=== PATIENT | female | born 1980 | race Caucasian/White ===

== ENCOUNTER 2018-01-23 18:28 | Observation (INO) | payer OTHER ==
[~2018-01-23] VITALS: Ht 162.6 cm; Wt 74.8 kg
[~2018-01-23 18:28] MED LIST: CLINDAMYCIN HC300 MG PO; IBU800 MG PO; NORCO 325 MG-51 TAB PO; PERCOCET 325 MG1 TA2 PO; SYMAX-SR0.375 MG PO; ZOFRAN ODT8 MG PO; ZOFRAN4 M1 SL
--- NOTE | 2018-01-23 20:10 | ULTRASOUND REPORT ---
EXAMINATION: US ABDOMEN LIMITED CLINICAL INFORMATION: Right upper quadrant pain. Cholecystitis.. COMPARISON: CT abdomen pelvis 06/02/2014 TECHNIQUE: Real-time imaging of the right upper quadrant abdominal viscera. Examination mildly limited secondary to overlying bowel gas. FINDINGS: PANCREAS: Visualized portion of the pancreas are normal in appearance. LIVER: Normal. The liver demonstrates normal size, contour and echogenicity. No focal lesion or intrahepatic biliary duct dilatation. GALLBLADDER: The gallbladder is physiologically distended without evidence of stones, sludge or polyps. The gallbladder wall is not diffusely thickened. Sonographic Cordero's sign is inaccurate as the patient is tender in the entire right upper quadrant per technologist report. COMMON BILE DUCT: Normal in caliber measuring 0.4 cm in diameter. RIGHT KIDNEY: The kidney measures 10.8 cm in maximum dimension. 4 mm nonobstructing mid pole calculus. No hydronephrosis. FREE FLUID: None. IMPRESSION: 1. Physiologically distended gallbladder without gallstones. Cordero's sign is inaccurate as the patient is tender in the entire right upper quadrant per technologist report. Clinical correlation recommended to evaluate for acute cholecystitis. 2. 4 mm nonobstructing right renal calculus. No hydronephrosis.
[2018-01-23 20:22] LABS: ABSOLUTE BASOPHIL COUNT 0 /CUMM (0.0-0.2); ABSOLUTE EOSINOPHIL COUNT 0.1 /CUMM (0.0-0.7); ABSOLUTE GRANULOCYTE CT 4.5 /CUMM (1.4-6.5); ABSOLUTE LYMPH COUNT 2.4 /CUMM (1.2-3.4); ABSOLUTE MONOCYTE COUNT 0.5 /CUMM (0.10-0.60); BASOPHIL % 0.4 % (0.0-2.0); EOSINOPHIL % 1.4 % (0-5); GRANULOCYTE % 59.6 % (42.2-75.2); MEAN CORPUSCULAR HGB 31.2 PG (27.0-31.0); MEAN CORPUSCULAR VOLUME 91.8 FL (81.0-99.0); MEAN PLATELET VOLUME 8.5 FL (7.4-10.4); PLATELET COUNT 215 /CUMM (130-400); RBC DISTRIBUTION WIDTH 12.8 % (11.5-14.5); WHITE BLOOD CELL COUNT 7.5 /CUMM (4.8-10.8)
--- NOTE | 2018-01-23 22:41 | CT SCAN REPORT ---
EXAMINATION: CT ABDOMEN AND PELVIS WITH CONTRAST CLINICAL INFORMATION: Right upper quadrant pain COMPARISON: CT scan abdomen pelvis 06/03/2014 TECHNIQUE: Multidetector volumetric imaging was performed of the abdomen and pelvis following IV administration of 95 mL of Optiray 320 intravenous contrast. Sagittal and coronal reformatted images were obtained on the technologist's workstation. DLP: 348.68 mGy-cm FINDINGS: LUNG BASES: The visualized lung bases are unremarkable. LIVER, GALLBLADDER, AND BILIARY TREE: There is a 9 mm hypodensity in segment 7 and a second 7 mm hypodensity in the left lobe liver near the gallbladder, segment 4, of the liver both remain unchanged since CAT scan 06/03/2014 likely a small hepatic cysts. The liver is normal in size, shape, and attenuation. No suspicious focal hepatic lesion or biliary ductal dilatation is present. The gallbladder is unremarkable with no evidence of radiopaque gallstones, gallbladder wall thickening, or obvious pericholecystic inflammatory changes. PANCREAS: Unremarkable. SPLEEN: Unremarkable. ADRENAL GLANDS: Unremarkable. KIDNEYS AND URETERS: The kidneys are normal in size, shape, and attenuation. No hydronephrosis, hydroureter, or calculi seen. No perinephric stranding. BLADDER: Unremarkable. GASTROINTESTINAL TRACT: The small and large bowel are unremarkable. The appendix is unremarkable. ABDOMINAL WALL: Small fat-containing umbilical hernia. LYMPH NODES: No significant lymphadenopathy. There are surgical clips in the retroperitoneum at the IVC bifurcation and extending along the right internal and external iliac chains. VASCULAR: Unremarkable. PELVIC VISCERA: Unremarkable. OSSEOUS STRUCTURES: Unremarkable. IMPRESSION: No acute abnormality CT scan abdomen and pelvis.
--- NOTE | 2018-01-23 22:46 | Cons- General Surgery ---
Julian Acosta 01/23/18 2242: General Information and HPI Consulting Request Date of Consult: 01/23/18 Requested By: MARLYN Kennedy, CHRISTOPHER Reason for Consult: abdominal pain Source of Information: patient Exam Limitations: no limitations History of Present Illness: This is a 37-year-old female presents to the ER with complaints of abdominal pain and flank pain on the right side, right upper quadrant. She has had this pain for approximately 2-3 days that has been intermittent and getting worse. There are no preceding factors to this that she is aware of. She believes she might of had a low-grade fever and chills at onset of this however did not take her temperature. She denies nausea and vomiting. She has a lack of appetite. She had mild diarrhea earlier today. She has no previous history of pain in this area. She does have history of kidney stones and uterine cancer and has had previous hysterectomy. She denies any symptoms of pain after eating, she does not recall this pain starting after eating, she has not had any large fried or fatty meals. She has not had any epigastric pain or reflux symptoms or pain in the right upper quadrant over the last several weeks. She has no family history of gallbladder disease. Upon arrival here she had routine labs and an ultrasound which showed a physiologically distended gallbladder and was otherwise unremarkable. Surgery was consulted for further evaluation of her abdominal pain Allergies/Medications Allergies: Coded Allergies: Penicillins (UNKNOWN 01/23/18) bee venom protein (honey bee) (UNKNOWN 01/24/18) cephalexin (UNKNOWN 01/23/18) oats (OATMEAL, UNKNOWN RXN 01/24/18) shellfish derived (UNKNOWN 01/23/18) Home Med List: CLINDAMYCIN HCL (Clindamycin HCl) 300 MG CAPSULE 1 CAP PO TID CELLULITIS RIGHT SIDE R FOOT (Reported) Hyoscyamine Sulfate (Symax-Sr) 0.375 MG TAB.ER.12H 1 TAB PO 4 TIMES/DAY ANTISPASMODIC (Reported) Ibuprofen (Ibu) 800 MG TAB 1 TAB PO PRN PAIN (Reported) Ondansetron (Zofran Odt) 8 MG ODT 1 TAB PO PRN N/V (Reported) Ondansetron (Zofran Odt) 4 MG TAB.RAPDIS 1 ODT SL Q6P PRN NAUSEA OXYCODONE HCL/ACETAMINOPHEN (Percocet 5-325 MG Tablet) 325 MG/5 MG TAB 1-2 TAB PO Q4-6 PRN PRN PAIN Past History Medical History Renal: nephrolithiasis Psychiatric: anxiety, depression Cancer(s): Uterine Cancer Functional Ability ADLs Independent: dressing, eating, toileting, bathing. Review of Systems Review of Systems: Review of systems: See HPI, all other systems negative. Constitutional: No chills fever or weight loss HEENT: No visual changes no sore throat no congestion Cardiovascular: No chest pain ,palpitation , orthopnea or ankle swelling Skin: No jaundice no rashes Respiratory: No dyspnea cough sputum or hemoptysis GI: See HPI : No dysuria no hematuria Musclulo skeletal: No back pain no neck pain, Neurologic: No numbness no confusion Psych: No stress anxiety or depression,. Heme/endocrine: No bruising no bleeding no polyuria or polydipsia Immunology: No splenectomy or history of AIDS Exam & Diagnostic Data Vital Signs and I&O Vital Signs Date Time Temp Pulse Resp B/P B/P Pulse O2 O2 Flow FiO2 Mean Ox Delivery Rate 01/23 2038 86 18 111/73 Room Air 01/23 2030 Room Air 01/23 1857 98.3 93 16 119/80 97 Room Air Physical Exam: Well-developed well-nourished no apparent distress. HEENT: Atraumatic, extraocular motion intact Neck: Supple, no lymphadenopathy Respiratory: No respiratory distress Abdomen: Tenderness to the right flank, right CVA region, far lateral right upper quadrant. She does not have tenderness locally over McBurney's point, her pain is more lateral. She does not have any epigastric pain or tenderness. No lower abdominal tenderness. No distention. No rashes about the right flank Extremities: No edema, no calf pain Neuro: Alert and oriented x3 Psych: Mood affect normal, normal memory normal judgment. Skin: Warm and dry, no rash on exposed skin Last 24 Hours of Labs: Laboratory Tests 01/23 Chemistry Sodium (137 - 145 mmol/L) 139 Potassium (3.5 - 5.1 mmol/L) 4.0 Chloride (98 - 107 mmol/L) 102 Carbon Dioxide (22 - 30 mmol/L) 31 H Anion Gap (5 - 16) 6 BUN (7 - 17 mg/dL) 15 Creatinine (0.5 - 1.0 mg/dL) 0.8 Estimated GFR (>60 ml/min) > 60 BUN/Creatinine Ratio (7 - 25 %) 18.8 Glucose (65 - 99 mg/dL) 86 Calcium (8.4 - 10.2 mg/dL) 9.5 Total Bilirubin (0.2 - 1.3 mg/dL) 0.3 AST (14 - 36 U/L) 16 ALT (9 - 52 U/L) 24 Alkaline Phosphatase (<127 U/L) 61 Total Protein (6.3 - 8.2 g/dL) 6.9 Albumin (3.5 - 5.0 g/dL) 4.4 Globulin (1.9 - 4.2 gm/dL) 2.5 Albumin/Globulin Ratio (1.1 - 2.2 %) 1.8 Amylase (30 - 110 U/L) 68 Lipase (23 - 300 U/L) 115 Hematology CBC w Diff NO MAN DIFF REQ WBC (4.8 - 10.8 /CUMM) 7.5 RBC (4.20 - 5.40 /CUMM) 4.80 Hgb (12.0 - 16.0 G/DL) 15.0 Hct (37 - 47 %) 44.0 MCV (81.0 - 99.0 FL) 91.8 MCH (27.0 - 31.0 PG) 31.2 H MCHC (33.0 - 37.0 G/DL) 34.0 RDW (11.5 - 14.5 %) 12.8 Plt Count (130 - 400 /CUMM) 215 MPV (7.4 - 10.4 FL) 8.5 Gran % (42.2 - 75.2 %) 59.6 Lymphocytes % (20.5 - 51.1 %) 31.4 Monocytes % (1.7 - 9.3 %) 7.2 Eosinophils % (0 - 5 %) 1.4 Basophils % (0.0 - 2.0 %) 0.4 Absolute Granulocytes (1.4 - 6.5 /CUMM) 4.5 Absolute Lymphocytes (1.2 - 3.4 /CUMM) 2.4 Absolute Monocytes (0.10 - 0.60 /CUMM) 0.5 Absolute Eosinophils (0.0 - 0.7 /CUMM) 0.1 Absolute Basophils (0.0 - 0.2 /CUMM) 0 Urines Urine Color (YEL,AMB,STR) YEL Urine Clarity (CLEAR) CLEAR Urine pH (5.0 - 8.0) 8.5 H Ur Specific [place] (1.001 - 1.035) 1.010 Urine Protein (NEG,<30 MG/DL) NEG Urine Ketones (NEG) NEG Urine Nitrite (NEG) NEG Urine Bilirubin (NEG) NEG Urine Urobilinogen (0.1 - 1.0 EU/dl) 0.2 Ur Leukocyte Esterase (NEG) LARGE H Ur Microscopic SEDIMENT EXAMINED Urine WBC (0 - 2 /HPF) 5-10 H Ur Epithelial Cells (NONE,FEW) RARE Urine Bacteria (NEG/NONE) FEW H Urine Mucus (FEW,NONE) RARE Urine Hemoglobin (NEG) NEG Urine Glucose (N MG/DL) NEG Urine Test NEGATIVE 01/23 Chemistry Amylase Cancelled Lipase Cancelled Imaging Results: PATIENT: GARTH BECK PRESENT AGE: 37 PATIENT ACCOUNT NO: [id number] : 78 LOCATION: [facility] ORDERING PHYSICIAN: Consuelo CLINE SERVICE DATE: 01/23/18 EXAM TYPE: US - US-LIMITED ABDOMEN EXAMINATION: US ABDOMEN LIMITED CLINICAL INFORMATION: Right upper quadrant pain. Cholecystitis.. COMPARISON: CT abdomen pelvis 06/02/2014 TECHNIQUE: Real-time imaging of the right upper quadrant abdominal viscera. Examination mildly limited secondary to overlying bowel gas. FINDINGS: PANCREAS: Visualized portion of the pancreas are normal in appearance. LIVER: Normal. The liver demonstrates normal size, contour and echogenicity. No focal lesion or intrahepatic biliary duct dilatation. GALLBLADDER: The gallbladder is physiologically distended without evidence of stones, sludge or polyps. The gallbladder wall is not diffusely thickened. Sonographic Cordero's sign is inaccurate as the patient is tender in the entire right upper quadrant per technologist report. COMMON BILE DUCT: Normal in caliber measuring 0.4 cm in diameter. RIGHT KIDNEY: The kidney measures 10.8 cm in maximum dimension. 4 mm nonobstructing mid pole calculus. No hydronephrosis. FREE FLUID: None. IMPRESSION: 1. Physiologically distended gallbladder without gallstones. Cordero's sign is inaccurate as the patient is tender in the entire right upper quadrant per technologist report. Clinical correlation recommended to evaluate for acute cholecystitis. 2. 4 mm nonobstructing right renal calculus. No hydronephrosis. DICTATED BY: Walter Pulido MD DATE/TIME DICTATED:01/23/182001 LOADING AND UNLOADING SUPERVISOR:DAVID DATE/TIME TRANSCRIBED:01/23/182001 Assessment/Plan Assessment/Plan 37-year-old female with right upper lateral abdominal and flank pain. Ultrasound routine labs including white count and LFTs are essentially normal. She does not have any preceding symptoms for gallbladder disease, no family history and not a classic presentation for gallbladder disease. Case discussed with Dr. Best and I have discussed this with the patient in the emergency room provider. No surgical intervention is required at this time. Due to pain, patient may be admitted to medicine, if so we will follow along with you Problem List: 1. Abdominal pain Consult Acknowledgment - Thank you for your consult request. Rene Best MD 01/24/18 1207: Assessment/Plan Consult Acknowledgment - Thank you for your consult request. Attending MD Review Statement Attending Statement Attending MD Statement: discuss w/resident/PA/THERMAL CUTTER HAND, reviewed images Attending Assessment/Plan: Case was discussed with surgical PA over the night. Patient presents with right flank pain, the onset of which was atypical for biliary colic. Although there was right-sided/upper quadrant tenderness, there is no evidence of gallstones or inflammatory changes by ultrasound. Follow-up CT scan images were reviewed. There is no significant inflammatory process regarding her gallbladder. My overall impression is that her pain is not due to cholecystitis. Defer further workup to medical team and/or gastroenterology.
--- NOTE | 2018-01-24 00:05 | History & Physical ---
Anisha Nance 01/24/18 0004: General Information and HPI Source of Information: patient Exam Limitations: no limitations History of Present Illness: Patient is a 37 year old female with PMH of IBS, Ulcerative Colitis, Black Syndrome, Uterine Cancer status post RAYMON and 16 weeks of radiation in 2007 who presented to the ED with right sided abdomnal/flank pain for one day. Patient states that day prior to admission at 530PM she began to have the pain after eating home made fajitas. She had 3 x loose stools at 930PM that night as well which she attributed to her normal self and her combination of colitis/IBS. Patients pain is described to be cramping in nature, 6/10 on the pain scale, radiates to the back and worse with movements, specifically bending forward. 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 She states she was scoped 2 weeks ago by her regular GI physician at [facility] (Dr. Irby) who found 5 polyps that were negative in pathology. Patient denies any recent sick contact. Claims her diet has been changed recently for the better with no consumption of fatty/greasy foods. Allergies: Penicillin (told as baby), Keflex (rash in 2007), Shellfish, bees Smokin pack a day since 16 years old Alcohol: Denied Family Hx: Mother: Lymch Syndrome, DM, HTN; Younger Sister: Black Syndrome PCP: Boris Dai GI: Dr. Irby ([facility]) Allergies/Medications Home Med list CLINDAMYCIN HCL (Clindamycin HCl) 300 MG CAPSULE 1 CAP PO TID CELLULITIS RIGHT SIDE R FOOT (Reported) Hyoscyamine Sulfate (Symax-Sr) 0.375 MG TAB.ER.12H 1 TAB PO 4 TIMES/DAY ANTISPASMODIC (Reported) Ibuprofen (Ibu) 800 MG TAB 1 TAB PO PRN PAIN (Reported) Ondansetron (Zofran Odt) 8 MG ODT 1 TAB PO PRN N/V (Reported) Ondansetron (Zofran Odt) 4 MG TAB.RAPDIS 1 ODT SL Q6P PRN NAUSEA OXYCODONE HCL/ACETAMINOPHEN (Percocet 5-325 MG Tablet) 325 MG/5 MG TAB 1-2 TAB PO Q4-6 PRN PRN PAIN Past History Travel History Traveled to [place] past 21 day No Medical History Renal: nephrolithiasis Psychiatric: anxiety, depression Cancer(s): Uterine Cancer Tetanus Vaccine: 05/13/10 Surgical History Surgical History: none (RAYMON), hysterectomy Past Family/Social History Functional Ability ADLs Independent: dressing, eating, toileting, bathing. Review of Systems Review of Systems Constitutional: Denies: see HPI. Exam & Diagnostic Data Last 24 Hrs of Vital Signs/I&O Vital Signs Date Time Temp Pulse Resp B/P B/P Pulse O2 O2 Flow FiO2 Mean Ox Delivery Rate 01/24 0134 98.2 67 20 104/60 97 Room Air 01/24 0013 65 18 101/65 Room Air 01/23 2245 95/56 01/23 2038 86 18 111/73 Room Air 01/23 2030 Room Air 01/23 1857 98.3 93 16 119/80 97 Room Air Intake & Output 01/24 0800 01/24 0000 01/23 1600 Intake Total 0 Output Total Balance 0 Intake, Oral 0 Patient 165 lb Weight Weight Reported by Patient Measurement Method Physical Exam General Appearance Alert, Oriented X3, Cooperative, Mild Distress Skin No Rashes, No Breakdown Skin Temp/Moisture Exam: Warm/Dry Sepsis Skin Exam (color): Normal for Ethnicity HEENT Mucous Membr. moist/pink Cardiovascular Normal S1, Normal S2 Lungs Clear to Auscultation, Normal Air Movement Abdomen Tenderness right quadrant to palpation; no rebound/gaurding; unable to specify murphys sign Neurological Normal Gait, Normal Speech, Strength at 5/5 X4 Ext, Normal Tone Extremities No Cyanosis, No Edema Vascular Normal Pulses, Pulses Symmetrical Last 24 Hrs of Labs/Mauricio: Laboratory Tests 01/23/182019: Urine Color YEL, Urine Clarity CLEAR, Urine pH 8.5 H, Ur Specific [place] 1.010 , Urine Protein NEG, Urine Ketones NEG, Urine Nitrite NEG, Urine Bilirubin NEG, Urine Urobilinogen 0.2, Ur Leukocyte Esterase LARGE H, Ur Microscopic SEDIMENT EXAMINED, Urine WBC 5-10 H, Ur Epithelial Cells RARE, Urine Bacteria FEW H, Urine Mucus RARE, Urine Hemoglobin NEG, Urine Glucose NEG, Urine Test NEGATIVE 01/23/182004: Anion Gap 6, Estimated GFR > 60, BUN/Creatinine Ratio 18.8, Glucose 86, Calcium 9.5, Total Bilirubin 0.3, AST 16, ALT 24, Alkaline Phosphatase 61, Total Protein 6.9, Albumin 4.4, Globulin 2.5, Albumin/Globulin Ratio 1.8, Amylase 68, Lipase 115, CBC w Diff NO MAN DIFF REQ, RBC 4.80, MCV 91.8, MCH 31.2 H, MCHC 34.0, RDW 12.8, MPV 8.5, Gran % 59.6, Lymphocytes % 31.4, Monocytes % 7.2, Eosinophils % 1.4, Basophils % 0.4, Absolute Granulocytes 4.5, Absolute Lymphocytes 2.4, Absolute Monocytes 0.5, Absolute Eosinophils 0.1, Absolute Basophils 0 01/23/181925: Amylase Cancelled 01/23/181899: Lipase Cancelled Microbiology 01/24 2020 URINE ROUT: Urine Culture - RECD Assessment/Plan Assessment: Patient is a 37 year old female with PMH of black syndrome, ulcerative colitis, IBS, s/p RAYMON in 2007 and radiation for uterine CA who came to ED for right sided abdominal/flank pain that started 2 days ago and getting worse. Denied nausea/ vomiting but has had mild diarrhea. Seen by surgical team for consultation of abdominal pain and no surgical intervention required. Dr. Alexander has discussed case for patient to have a HIDA scan and observed inpatient. EMERGENCY DEPARTMENT: NS Bolus, Morphine 4mg x 2, Toradol 30mg IV x 1, Zofran Vitals: 98.3, 93, 16, 119/80, 97% RA Labs: WBC 7.5, Hgb 15.0, Hct: 44.0, Plt 215 Chemistry: NA 139, K 4.0, Cl 102, CO2 31, BUN 15/Cr 0.8 AST: 16, ALT 24, ALK Phos 61, Total protein 6.9, Albumin 4.4, Amylase 68, Lipase 115 UA: pH 8.5, Large esterase, 5-10 wbc, few bacteria RUQ US: 1. Physiologically distended gallbladder without gallstones. Cordero's sign is inaccurate as the patient is tender in the entire right upper quadrant per technologist report. Clinical correlation recommended to evaluate for acute cholecystitis. 2. 4 mm nonobstructing right renal calculus. No hydronephrosis. Abdomen/Pelvis CT: -Negative PROBLEM LIST: 1. Abdominal Pain h/o IBS/UC/Black Syndrome PLAN: * Observe on general medicine floor as for GI HIDA scan in AM * Keep patient NPO for now pending HIDA scan * AVOID narcotis * IV Fluids: D5 NS @75/hr * Pain: Tylenol IV/PO Code Status: Full Code DVT PPx: Heparin SC Diet: NPO As Ranked By This Provider Problem List: 1. Abdominal pain Core Measures/Misc (01/15) Acute Coronary Syndrome ACS Diagnosis: No Congestive Heart Failure Congestive Heart Failure Diagnosis No Cerebrovascular Accident CVA/TIA Diagnosis: No VTE (View Protocol) VTE Risk Factors Other No Mechanical VTE Prophylaxis d/t N/A MechProphylax Ordered No VTE Pharm Prophylaxis d/t NA PharmProphylax ordered Sepsis (View protocol) Sepsis Present: No If YES complete Sepsis Event Note If YES complete Sepsis Event Note Martha Sequeira MD 01/24/18 0050: General Information and HPI Allergies/Medications Allergies: Coded Allergies: Penicillins (UNKNOWN 01/23/18) bee venom protein (honey bee) (UNKNOWN 01/24/18) cephalexin (UNKNOWN 01/23/18) oats (OATMEAL, UNKNOWN RXN 01/24/18) shellfish derived (UNKNOWN 01/23/18) Core Measures/Misc (01/15) Sepsis (View protocol) If YES complete Sepsis Event Note If YES complete Sepsis Event Note Resident Review Statement Resident Statement: examined this patient, discussed with university intern, agreed with university intern, reviewed images Other Findings: Patient is a 37 y/o female with PMH significant for IBS, UC, Black syndrome, Uterine Cancer s/p RAYMON and radiation therapy (2007), presenting this admission with chief complaint of RUQ pain. Patient reports that one day prio to admission she started experiencing abdominal pain after having homemade fajitas. Describes the pain as a cramping sensation that radiates to her back. Worsens with movement especially when patient bends forwards. Is unsure if her pain worsens with food as she has been only having fluid intake since the abdominal pain started. Reports no exacerbation of her symptoms with fluids. Does report some reflux which she states is new for her. Patient states she had 3 episodes of loose stool after the pain started however believes this is likely from her UC. Patient denies any fever, chills, n/v, constipation, hematemesis, melena, bright red blood per rectum. Patient reports she has been following with a GI doctor at [facility] for yearly colonoscopies since her diagnosis of Black Syndrome after she was found to have uterine cancer. Reports her last colonoscopy was 2 weeks prior which showed multiple polyps (5) which were biospied and were reported as negative for malignancy. Patient is a current everyday smoker - 1 ppd for 20 years, denies alcohol use or other illicit drug use. 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 Denies any sick contacts at home. Physical exam and Labs as above. Patient is a 37 y/o with an extensive GI history now presenting with RUQ pain, afebrile with no white count and normal LFTs with RUQ ultrasound showing gallbladder wall distension however no stone or signs of inflammation and a nonobstructing right sided renal calculi not seen on CT Abdomen and pelvis. Patients examination produced mild tenderness to palpation of the RUQ with no rebound or guarding and mild right sided CVA tenderness. Patient was evaluated by surgery in the ED with no inpatient plan for surgical management. GI was consulted in the ED and requested HIDA scan. Problem: 1. RUQ pain 2. R renal calculi - nonobstructing 3. Chronic conditions: IBS, UC, Black Syndrome Plan: Observe on gen med IV fluid hydration HIDA scan in AM Follow up with GI No signs of infection, watch off antibiotics Confirm home medications in the AM Diet: NPO for HIDA scan Code: Full code DVT PPx: Heparin SC, Rehan Jurado MD 01/24/18 0234: Core Measures/Misc (01/15) Sepsis (View protocol) If YES complete Sepsis Event Note If YES complete Sepsis Event Note Attending MD Review Statement Attending Statement Attending MD Statement: examined this patient, discuss w/resident/PA/MANAGER OF SALES, agreed w/resident/PA/MANAGER OF SALES Attending Assessment/Plan: Patient is seen and examined independently by me. Care plan discussed with medical assistant per diem and/or resident. I agree with the physical exam findings and plan of care as outlined above with the following changes and additions. 37 yo F with history of UC, Black syndrome, uterine cancer s/p RAYMON and radiation 2007, presents with RUQ abdominal and right flank pain since 01/22 at 5:30 pm. Patient was eating fajitas when she developed the pain. She has nausea but no vomiting. She has a low grade temp of 99 and had 2-3 non bloody diarrhea yesterday (her baseline BM). No BM today. She had colonoscopy 2 weeks ago and found to have 5 polyps which are benign. On exam, she has mild RUQ and right lateral tenderness with no rebound or guarding. In the ED, patient is afebrile. WBC 7.5. LFT and lipase are unremarkable. US of abdomen shows physiologically distended gallbladder without gallstones. 4 mm nonobstructing right renal calculus with no hydronephrosis. CT abdomen and pelvis shows unremarkable gallbladder with no radiopaque gallstones. No biliary ductal dilatation. Patient is placed on observation to [facility] for RUQ abdominal pain. NPO. IV hydration. Check HIDA scan, pending on result, may need surgery or GI consult. Signed: Rehan Crews MD FACP
--- NOTE | 2018-01-24 00:36 | ED GENERAL ADULT ---
History of Present Illness General Chief Complaint: Abdominal Pain/Flank Pain Stated Complaint: RUQ PAIN Source: patient Exam Limitations: no limitations Vital Signs & Intake/Output Vital Signs & Intake/Output Vital Signs Date Time Temp Pulse Resp B/P B/P Pulse O2 O2 Flow FiO2 Mean Ox Delivery Rate 01/24 0134 98.2 67 20 104/60 97 Room Air 01/24 0013 65 18 101/65 Room Air 01/23 2245 95/56 01/23 2038 86 18 111/73 Room Air 01/23 2030 Room Air 01/23 1857 98.3 93 16 119/80 97 Room Air ED Intake and Output 01/24 0000 01/23 1200 Intake Total 0 Output Total Balance 0 Intake, Oral 0 Patient 165 lb Weight Weight Reported by Patient Measurement Method Allergies Coded Allergies: Penicillins (UNKNOWN 01/23/18) bee venom protein (honey bee) (UNKNOWN 01/24/18) cephalexin (UNKNOWN 01/23/18) oats (OATMEAL, UNKNOWN RXN 01/24/18) shellfish derived (UNKNOWN 01/23/18) Reconcile Medications CLINDAMYCIN HCL (Clindamycin HCl) 300 MG CAPSULE 1 CAP PO TID CELLULITIS RIGHT SIDE R FOOT (Reported) Hyoscyamine Sulfate (Symax-Sr) 0.375 MG TAB.ER.12H 1 TAB PO 4 TIMES/DAY ANTISPASMODIC (Reported) Ibuprofen (Ibu) 800 MG TAB 1 TAB PO PRN PAIN (Reported) Ondansetron (Zofran Odt) 8 MG ODT 1 TAB PO PRN N/V (Reported) Ondansetron (Zofran Odt) 4 MG TAB.RAPDIS 1 ODT SL Q6P PRN NAUSEA OXYCODONE HCL/ACETAMINOPHEN (Percocet 5-325 MG Tablet) 325 MG/5 MG TAB 1-2 TAB PO Q4-6 PRN PRN PAIN Triage Note: PT TO THE ER C/O RLQ PAIN 6/10 ONSET LAST NIGHT 1730. PT STATES THAT SHE HAS STOMACH ISSUES BUT USUALLY THOSE ISSUES ARE ON THE LEFT AND PER PT THIS FEELS DIFFERENT. PT C/O NAUSEA DENIES VOMITTING. Triage Nurses Notes Reviewed? yes Onset: Gradual Duration: day(s): Timing: constant : No Patient currently breastfeeds: No HPI: 37-year-old female with a history of uterine cancer (status post total hysterectomy), anxiety, depression presenting with abdominal pain since last night. Patient reports constant right upper quadrant pain that has no worsening or alleviating factors. She endorses constant nausea, but has not had any vomiting. Denies fevers, chest pain, shortness of breath, diarrhea, melena, hematochezia, dysuria. Prior abdominal surgeries include total hysterectomy. (Consuelo Campos) Past History Travel History Traveled to [place] past 21 day No Medical History Any Pertinent Medical History? see below for history Renal: nephrolithiasis Psychiatric: anxiety, depression Cancer(s): Uterine Cancer Tetanus Vaccine: 05/13/10 Surgical History Surgical History: non-contributory Psychosocial History What is your primary language Iranian Tobacco Use: Current Daily Use Daily Tobacco Use Amount/Type: => 5 Cigarettes daily Family History Hx Contributory? No (Consuelo Campos) Review of Systems Review of Systems Constitutional: Reports: no symptoms. EENTM: Reports: no symptoms. Respiratory: Reports: no symptoms. Cardiovascular: Reports: no symptoms. GI: Reports: see HPI. Genitourinary: Reports: no symptoms. Musculoskeletal: Reports: no symptoms. Skin: Reports: no symptoms. Neurological/Psychological: Reports: no symptoms. Hematologic/Endocrine: Reports: no symptoms. Immunologic/Allergic: Reports: no symptoms. All Other Systems: Reviewed and Negative (Consuelo Campos) Physical Exam Physical Exam General Appearance: well developed/nourished, no apparent distress, alert, awake Comments: Gen.: Well-nourished, well-developed, no acute distress. Head: Normocephalic, atraumatic. Eyes: Normal inspection bilaterally Ears: Normal inspection bilaterally Nose: Normal inspection Neck: Normal inspection Lungs: clear to auscultation bilaterally, normnal breath sounds Heart: regular rate and rhythm Abdomen: soft, nondistended, normal bowel sounds, tender to palpation in the right upper quadrant, no rebound or guarding Back: No CVA tenderness Extremities: Normal inspection Neurologic: alert and oriented x3, steady gait Skin: warm and dry Psychiatric: Normal mood and affect, no apparent delusions or hallucinations, behavior appropriate Core Measures ACS in differential dx? No CVA/TIA Diagnosis: No Sepsis Present: No Sepsis Focused Exam Completed? No (Consuelo Campos) Progress Differential Diagnoses I considered the following diagnoses in my evaluation of the patient: [Biliary colic versus cholecystitis versus cholelithiasis versus choledocholithiasis versus cholangitis versus renal stone versus MSK strain] Plan of Care: Orders Procedure Date/time Status Nothing by Mouth 01/24 B Active CBC WITHOUT DIFFERENTIAL 01/24 600 Active BASIC ELECTROLYTES PLUS BUN&CR 01/24 600 Active Saline Lock 01/24 121 Active Pathway - chart 01/24 121 Active House Staff 01/24 121 Active EKG 01/24 121 Active Code Status 01/24 121 Active VTE Mechanical Prophylaxis 01/24 UNK Active Vital Signs 01/24 UNK Active Intake & Output 01/24 UNK Active Activity/Ambulation 01/24 UNK Active Patient Data 01/23 235 Active Saline Lock 01/[address] in observation 01/23 2357 Active Misc Message 01/23 2357 Active ED Holding Orders 01/23 2357 Active Vital Signs 01/23 2357 Active Code Status 01/23 2357 Complete Add-on Test (ER Only) 01/23 2059 Active Intake & Output 01/23 2030 Active CULTURE,URINE 01/24 2020 Active LIPASE 01/23 2005 Complete AMYLASE 01/23 2005 Complete URINE 01/23 184 Complete URINALYSIS 01/23 184 Complete COMPREHENSIVE METABOLIC PANEL 01/23 184 Complete CBC WITHOUT DIFFERENTIAL 01/23 184 Complete Current Medications Sig/Elias Start time Last Medication Dose Stop Time Status Admin Polyethylene Glycol 17 GM AT BEDTIME 01/24 2100 AC (Miralax) Senna/Docusate Sodium 1 TAB AT BEDTIME 01/24 2100 AC (Senokot S) Dextrose/Sodium 1,000 ML Q13H 01/24 0700 CAN Chloride 01/24 195 (D5W-1/2 Normal Saline 1000ML) Heparin Sodium 5,000 UNIT Q8 01/24 06 AC (Porcine) Dextrose/Sodium 1,000 ML Q13H 01/24 0230 AC Chloride (D5-Normal Saline) Acetaminophen 650 MG Q6P PRN 01/24 0130 AC (Tylenol) Acetaminophen 1,000 MG Q6P PRN 01/24 0130 AC (Ofirmev) Laboratory Tests 01/23/182019: Urine Color YEL, Urine Clarity CLEAR, Urine pH 8.5 H, Ur Specific [place] 1.010 , Urine Protein NEG, Urine Ketones NEG, Urine Nitrite NEG, Urine Bilirubin NEG, Urine Urobilinogen 0.2, Ur Leukocyte Esterase LARGE H, Ur Microscopic SEDIMENT EXAMINED, Urine WBC 5-10 H, Ur Epithelial Cells RARE, Urine Bacteria FEW H, Urine Mucus RARE, Urine Hemoglobin NEG, Urine Glucose NEG, Urine Test NEGATIVE 01/23/182004: Anion Gap 6, Estimated GFR > 60, BUN/Creatinine Ratio 18.8, Glucose 86, Calcium 9.5, Total Bilirubin 0.3, AST 16, ALT 24, Alkaline Phosphatase 61, Total Protein 6.9, Albumin 4.4, Globulin 2.5, Albumin/Globulin Ratio 1.8, Amylase 68, Lipase 115, CBC w Diff NO MAN DIFF REQ, RBC 4.80, MCV 91.8, MCH 31.2 H, MCHC 34.0, RDW 12.8, MPV 8.5, Gran % 59.6, Lymphocytes % 31.4, Monocytes % 7.2, Eosinophils % 1.4, Basophils % 0.4, Absolute Granulocytes 4.5, Absolute Lymphocytes 2.4, Absolute Monocytes 0.5, Absolute Eosinophils 0.1, Absolute Basophils 0 01/23/181925: Amylase Cancelled 01/23/181899: Lipase Cancelled Microbiology 01/24 2020 URINE ROUT: Urine Culture - RECD US IMPRESSION: 1. Physiologically distended gallbladder without gallstones. Cordero's sign is inaccurate as the patient is tender in the entire right upper quadrant per technologist report. Clinical correlation recommended to evaluate for acute cholecystitis. 2. 4 mm nonobstructing right renal calculus. No hydronephrosis. Labs unremarkable including normal WBC and normal LFTs. Surgery consulted. Patient was seen and evaluated by the surgical PA who after discussion with the attending does not feel her symptoms are biliary in etiology. They recommended CT of the abdomen and pelvis which was obtained and was unremarkable. Discussed with Dr. Alexander from GI who recommended placing the patient in observation for inpatient HIDA scan. She will be admitted to general medicine so the HIDA scan may be obtained. If HIDA scan is positive surgery will be reconsulted. If HIDA scan is negative GI may be reconsulted to evaluate for alternative etiologies of her right upper quadrant pain. Initial ED EKG: none (Brent CLINE,Consuelo) Departure Departure Disposition: STILL A PATIENT Condition: Stable Clinical Impression Primary Impression: RUQ pain Secondary Impressions: Nausea Referrals: Suhas RAI,Boris Arango (PCP/Family) Departure Forms: Customer Survey General Discharge Information Observation Note Spoke With: Mars RAI,Rehan Crawley Patient In: Non-ED OBS Care Area Rationale for Observation: My rational for observation is as follows [IV pain control, HIDA scan, gastroenterology versus surgery consult, serial abdominal exams, serial labs]. (Consuelo Campos) PA/[employer]KER Co-Sign Statement Statement: ED Attending supervision documentation- [x] I saw and evaluated the patient. I have also reviewed all the pertinent lab results and diagnostic results. I agree with the findings and the plan of care as documented in the PA's/STEAK SAUCE [employer]KER's documentation. [] I have reviewed the ED Record and agree with the PA's/STEAK SAUCE MAKER's documentation. [] Additions or exceptions (if any) to the PAs/STEAK SAUCE MAKER's note and plan are summarized below: [] (Chris RAI,Cameron Moreland) Critical Care Note Critical Care Note Critical Care Time: non-applicable (Consuelo Campos)
[2018-01-24 05:44] LABS: ABSOLUTE EOSINOPHIL COUNT 0.1 /CUMM (0.0-0.7); ABSOLUTE MONOCYTE COUNT 0.4 /CUMM (0.10-0.60); MEAN CORPUSCULAR HGB 31.7 PG (27.0-31.0); MEAN PLATELET VOLUME 8.6 FL (7.4-10.4); RED BLOOD CELL CT 4.14 /CUMM (4.20-5.40); WHITE BLOOD CELL COUNT 5.8 /CUMM (4.8-10.8)
[2018-01-24 05:48] LABS: ABSOLUTE BASOPHIL COUNT 0 /CUMM (0.0-0.2); ABSOLUTE LYMPH COUNT 2.3 /CUMM (1.2-3.4); BASOPHIL % 0.5 % (0.0-2.0); EOSINOPHIL % 1.9 % (0-5); GRANULOCYTE % 51.8 % (42.2-75.2); MEAN CORPUSCULAR HGB CONC 34.4 G/DL (33.0-37.0); MEAN CORPUSCULAR VOLUME 92.1 FL (81.0-99.0); PLATELET COUNT 177 /CUMM (130-400); RBC DISTRIBUTION WIDTH 12.8 % (11.5-14.5)
[2018-01-24 05:50] LABS: HEMATOCRIT 38.1 % (37-47)
[2018-01-24 06:30] VITALS: BP 88/60
--- NOTE | 2018-01-24 07:51 | PN- Student ---
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 Pt states her pain is worse today 7-8/10, constant and sharp, which was 5/10 and crampy yesterday. Pain now feels like it is wrapping around the back and is associated w/ worsened nausea and anorexia. Pt denies vomitting, diarrhea, SOB, chest pain or dysuria. Objective Objective: Vital Signs Date Time Temp Pulse Resp B/P B/P Pulse O2 O2 Flow FiO2 Mean Ox Delivery Rate 01/24 0630 98.2 66 18 88/60 95 Room Air 01/24 0513 98.0 68 18 97/61 96 Room Air 01/24 0134 98.2 67 20 104/60 97 Room Air 01/24 0013 65 18 101/65 Room Air 01/23 2245 95/56 01/23 2038 86 18 111/73 Room Air 01/23 2030 Room Air 01/23 1857 98.3 93 16 119/80 97 Room Air Intake & Output 01/24 0800 01/24 0000 01/23 1600 Intake Total 100 0 Output Total Balance 100 0 Intake, IV 100 Intake, Oral 0 Patient 165 lb 165 lb Weight Weight Reported by Patient Measurement Method Gen: WDWN middle aged female, in mild distress, laying in bed, AOx4 CV:RRR, no m/r/g Respiratory: No respiratory distress, vesicular b/l, no w/r/r Abdomen: Non-distended, mild tenderness to the right flank and epigastrum on light and deep palpation. No involuntary guarding or rebound. No rashes. No CVA tenderness b/l Extremities: No edema, no calf pain, dp +2 b/l Psych: Mood affect normal-depressed, good memory and judgment Results Results: Laboratory Tests 01/24 Chemistry Sodium (137 - 145 mmol/L) 139 Potassium (3.5 - 5.1 mmol/L) 4.4 Chloride (98 - 107 mmol/L) 107 Carbon Dioxide (22 - 30 mmol/L) 26 Anion Gap (5 - 16) 6 BUN (7 - 17 mg/dL) 16 Creatinine (0.5 - 1.0 mg/dL) 0.7 Estimated GFR (>60 ml/min) > 60 BUN/Creatinine Ratio (7 - 25 %) 22.9 Hematology CBC w Diff NO MAN DIFF REQ WBC (4.8 - 10.8 /CUMM) 5.8 RBC (4.20 - 5.40 /CUMM) 4.14 L Hgb (12.0 - 16.0 G/DL) 13.1 Hct (37 - 47 %) 38.1 MCV (81.0 - 99.0 FL) 92.1 MCH (27.0 - 31.0 PG) 31.7 H MCHC (33.0 - 37.0 G/DL) 34.4 RDW (11.5 - 14.5 %) 12.8 Plt Count (130 - 400 /CUMM) 177 MPV (7.4 - 10.4 FL) 8.6 Gran % (42.2 - 75.2 %) 51.8 Lymphocytes % (20.5 - 51.1 %) 39.6 Monocytes % (1.7 - 9.3 %) 6.2 Eosinophils % (0 - 5 %) 1.9 Basophils % (0.0 - 2.0 %) 0.5 Absolute Granulocytes (1.4 - 6.5 /CUMM) 3.0 Absolute Lymphocytes (1.2 - 3.4 /CUMM) 2.3 Absolute Monocytes (0.10 - 0.60 /CUMM) 0.4 Absolute Eosinophils (0.0 - 0.7 /CUMM) 0.1 Absolute Basophils (0.0 - 0.2 /CUMM) 0 Urines Urine Color (YEL,AMB,STR) YEL Urine Clarity (CLEAR) CLEAR Urine pH (5.0 - 8.0) 8.5 H Ur Specific [place] (1.001 - 1.035) 1.010 Urine Protein (NEG,<30 MG/DL) NEG Urine Ketones (NEG) NEG Urine Nitrite (NEG) NEG Urine Bilirubin (NEG) NEG Urine Urobilinogen (0.1 - 1.0 EU/dl) 0.2 Ur Leukocyte Esterase (NEG) LARGE H Ur Microscopic SEDIMENT EXAMINED Urine WBC (0 - 2 /HPF) 5-10 H Ur Epithelial Cells (NONE,FEW) RARE Urine Bacteria (NEG/NONE) FEW H Urine Mucus (FEW,NONE) RARE Urine Hemoglobin (NEG) NEG Urine Glucose (N MG/DL) NEG Urine Test NEGATIVE 01/23 192 1900 Chemistry Sodium (137 - 145 mmol/L) 139 Potassium (3.5 - 5.1 mmol/L) 4.0 Chloride (98 - 107 mmol/L) 102 Carbon Dioxide (22 - 30 mmol/L) 31 H Anion Gap (5 - 16) 6 BUN (7 - 17 mg/dL) 15 Creatinine (0.5 - 1.0 mg/dL) 0.8 Estimated GFR (>60 ml/min) > 60 BUN/Creatinine Ratio (7 - 25 %) 18.8 Glucose (65 - 99 mg/dL) 86 Calcium (8.4 - 10.2 mg/dL) 9.5 Total Bilirubin (0.2 - 1.3 mg/dL) 0.3 AST (14 - 36 U/L) 16 ALT (9 - 52 U/L) 24 Alkaline Phosphatase (<127 U/L) 61 Total Protein (6.3 - 8.2 g/dL) 6.9 Albumin (3.5 - 5.0 g/dL) 4.4 Globulin (1.9 - 4.2 gm/dL) 2.5 Albumin/Globulin Ratio (1.1 - 2.2 %) 1.8 Amylase (30 - 110 U/L) 68 Cancelled Lipase (23 - 300 U/L) 115 Cancelled Hematology CBC w Diff NO MAN DIFF REQ WBC (4.8 - 10.8 /CUMM) 7.5 RBC (4.20 - 5.40 /CUMM) 4.80 Hgb (12.0 - 16.0 G/DL) 15.0 Hct (37 - 47 %) 44.0 MCV (81.0 - 99.0 FL) 91.8 MCH (27.0 - 31.0 PG) 31.2 H MCHC (33.0 - 37.0 G/DL) 34.0 RDW (11.5 - 14.5 %) 12.8 Plt Count (130 - 400 /CUMM) 215 MPV (7.4 - 10.4 FL) 8.5 Gran % (42.2 - 75.2 %) 59.6 Lymphocytes % (20.5 - 51.1 %) 31.4 Monocytes % (1.7 - 9.3 %) 7.2 Eosinophils % (0 - 5 %) 1.4 Basophils % (0.0 - 2.0 %) 0.4 Absolute Granulocytes (1.4 - 6.5 /CUMM) 4.5 Absolute Lymphocytes (1.2 - 3.4 /CUMM) 2.4 Absolute Monocytes (0.10 - 0.60 /CUMM) 0.5 Absolute Eosinophils (0.0 - 0.7 /CUMM) 0.1 Absolute Basophils (0.0 - 0.2 /CUMM) 0 Laboratory Tests 01/24/18 0528: Anion Gap 6, Estimated GFR > 60, BUN/Creatinine Ratio 22.9, CBC w Diff NO MAN DIFF REQ, RBC 4.14 L, MCV 92.1, MCH 31.7 H, MCHC 34.4, RDW 12.8, MPV 8.6, Gran % 51.8, Lymphocytes % 39.6, Monocytes % 6.2, Eosinophils % 1.9, Basophils % 0.5, Absolute Granulocytes 3.0, Absolute Lymphocytes 2.3, Absolute Monocytes 0.4, Absolute Eosinophils 0.1, Absolute Basophils 0 01/23/182019: Urine Color YEL, Urine Clarity CLEAR, Urine pH 8.5 H, Ur Specific [place] 1.010 , Urine Protein NEG, Urine Ketones NEG, Urine Nitrite NEG, Urine Bilirubin NEG, Urine Urobilinogen 0.2, Ur Leukocyte Esterase LARGE H, Ur Microscopic SEDIMENT EXAMINED, Urine WBC 5-10 H, Ur Epithelial Cells RARE, Urine Bacteria FEW H, Urine Mucus RARE, Urine Hemoglobin NEG, Urine Glucose NEG, Urine Test NEGATIVE 01/23/182004: Anion Gap 6, Estimated GFR > 60, BUN/Creatinine Ratio 18.8, Glucose 86, Calcium 9.5, Total Bilirubin 0.3, AST 16, ALT 24, Alkaline Phosphatase 61, Total Protein 6.9, Albumin 4.4, Globulin 2.5, Albumin/Globulin Ratio 1.8, Amylase 68, Lipase 115, CBC w Diff NO MAN DIFF REQ, RBC 4.80, MCV 91.8, MCH 31.2 H, MCHC 34.0, RDW 12.8, MPV 8.5, Gran % 59.6, Lymphocytes % 31.4, Monocytes % 7.2, Eosinophils % 1.4, Basophils % 0.4, Absolute Granulocytes 4.5, Absolute Lymphocytes 2.4, Absolute Monocytes 0.5, Absolute Eosinophils 0.1, Absolute Basophils 0 09/25/18 1926: Amylase Cancelled 01/23/18 190: Lipase Cancelled Microbiology Date/Time Procedure - Status Source Growth 01/24 2020 Urine Culture - RECD URINE ROUT Assessment/Plan Assessment: 37 yo female w/ hx of uterine ca, IBD, black syndrome and depression HD2 for RUQ , lateral abd and flank pain w/ vitals, CBC, LFTs, and abd US wnl but symptomatically worsening. Plan: No surgical intervention is required at this time. HIDA scan today and serial abd exams Pain management as recommended by medicine NPO until HIDA to r/u surgical intervention Surgery will follow Rene Best MD 01/24/18 1209: Attending MD Review Statement Attending Sign Off Other Findings: Data as per medical student note. HIDA scan has been performed but not formally read by radiologist. Per my interpretation, there is prompt filling of her gallbladder, thus excluding the diagnosis of acute cholecystitis. Will sign off.
[2018-01-24 08:43] VITALS: BP 96/72
[2018-01-24 12:55] VITALS: BP 98/64
--- NOTE | 2018-01-24 13:02 | NUCLEAR MEDICINE REPORT ---
EXAMINATION: NM BILIARY TRACT IMAGING CLINICAL INFORMATION: Right upper quadrant pain. Assess for cholecystitis. COMPARISON: CT scan of the abdomen and pelvis and abdominal ultrasound 01/23/2018. TECHNIQUE: Serial gamma scintillation camera images were obtained over the abdomen for a total observation period of 50 minutes following the intravenous administration of 5.2 mCi Tc-99m Choletec. FINDINGS: There is good concentration of activity in the liver by 5 minutes post injection. Biliary activity is visualized by 5 minutes. The gallbladder is well visualized by 15 minutes. Small bowel is well visualized by 50 minutes. At the end of the study there is good clearance of activity from the liver and visualization of diffuse small bowel activity. IMPRESSION: 1. Visualization of the gallbladder is evidence of a patent cystic duct and strong evidence against the diagnosis of acute cholecystitis. 2. The common bile duct is patent. 3. Liver function appears normal.
--- NOTE | 2018-01-24 13:21 | PN- Att Addend ---
Attending Addendum Attending Brief Note 37F PMH UC, Black syndrome, uterine cancer s/p RAYMON and radiation 2007 presenting with 1 day of constant RUQ pain, dissimilar from past episodes of UC and nephrolithiasis. She has some nausea but no vomiting and no bowel changes. Afebrile, stable vitals, labs unremarkable. CT abdomen and RUQ U/S were normal. Plan - Continue on general medicine - HIDA scan - Surgery and GI - Trend LFTs - NPO for now - Continue home meds - DVT PPx
[2018-01-24] MEDS ORDERED: BUSPIRONE HCL15 M1 PO (13:39)
[2018-01-24] MEDS ORDERED: VIIBRYD10 M1 PO (13:39)
--- NOTE | 2018-01-24 13:39 | Patient Discharge Instructions ---
Discharge Instructions General Discharge Information You were seen/treated for: Abdominal pain Special Instructions: Please follow up with your PCP and GI doctor within 1 week of discharge. Diet Continue normal diet: Yes Activity Full Activity/No Limits: Yes Acute Coronary Syndrome Inclusion Criteria At DC or during hospital stay patient has or had the following: ACS DIAGNOSIS No Discharge Core Measures Meds if any: Prescribed or Continued at Discharge Meds if any: NOT Prescribed or Continued at Discharge Congestive Heart Failure Inclusion Criteria At DC or during hospital stay patient has or had the following: CHF DIAGNOSIS No Discharge Core Measures Meds if any: Prescribed or Continued at Discharge Meds if any: NOT Prescribed or Continued at Discharge Cerebrovascular accident Inclusion Criteria At DC or during hospital stay patient has or had the following: CVA/TIA Diagnosis No Discharge Core Measures Meds if any: Prescribed or Continued at Discharge Meds if any: NOT Prescribed or Continued at Discharge Venous thromboembolism Inclusion Criteria VTE Diagnosis No VTE Type NONE VTE Confirmed by (Test) NONE Discharge Core Measures - Per Current guidelines, there needs to be overlap - treatment for the first 5 days of Warfarin therapy. - If discharged on Warfarin prior to 5 days of - overlap therapy, the patient will need to be - assessed for post discharge needs including - *Post discharge parental anticoagulation - *Warfarin and/or parental anticoagulation education - *Follow up date to check INR post discharge At least 5 days overlap therapy as Inpatient No Meds if any: Prescribed or Continued at Discharge Note: Overlap Therapy is Warfarin and Anticoagulant Meds if any: NOT Prescribed or Continued at Discharge
[2018-01-24] MEDS ORDERED: DILAUDID2 M1 PO ×2 (13:42→13:48)
[2018-01-24] MEDS ORDERED: OMEPRAZOLE40 M1 PO (13:42)
[2018-01-24 13:51] VITALS: BP 100/56
== END 2018-01-24 14:15 ==
LOC: ERH 18:28 → ERHI 23:57 → ENRESERV 01-24 04:25 → 1NO 01-24 05:38 → ENPENDDIS 01-24 13:43 → 1NO 01-24 14:15
PROVIDERS: Physician Assistant; Student in an Organized Health Care Education/Training Program
DX: R10.11 Right upper quadrant pain (principal); K58.9 Irritable bowel syndrome, unspecified; K51.90 Ulcerative colitis, unspecified, without complications; Z85.42 Personal history of malignant neoplasm of other parts of uterus; F17.200 Nicotine dependence, unspecified, uncomplicated; F41.9 Anxiety disorder, unspecified; F32.9 Major depressive disorder, single episode, unspecified; R11.0 Nausea; Z87.442 Personal history of urinary calculi
CPT/HCPCS: 6020; 74177; 78226; 81001; 81025; 82436; 87086; 93005; 93010; 96374; 96375; 96376; A9537; G0378; J0131; J1644; J1885; J2405; J7042